=== PATIENT | male | born 2005 | race Caucasian/White ===

== ENCOUNTER 2025-02-14 18:45 | Emergency (ER) | payer BC ==
[~2025-02-14] VITALS: Ht 175.3 cm; Wt 86.0 kg
[2025-02-14] MEDS ORDERED: triamcinolone acetonide 40mg/ml inj IM ONE (18:50)
[2025-02-14 18:53] VITALS: TEMP 96.3
--- NOTE | 2025-02-14 18:56 | Physician Documentation ---
History of Present Illness ~ Chief Complaint: Allergic Reaction Stated Complaint: ALLERGIC REACTION Time Seen by MD: 18:50 HPI Patient presents to the emergency room with tongue swelling. He states he is allergic to pain that has in ate a peanut 6 minutes prior to arrival. He is apparently at [employer] and believes that they mixed peanut M and M's with regular M&M's. Medication Reconciliation Allergies: Coded Allergies: peanut (Verified Allergy, Severe, 02/14/25) Scheduled Epinephrine (Epipen 2-Calderon), 1 SYR IM ONCE Review of Systems ROS All review of systems negative except as per HPI Physical Exam Vital Signs: Temperature: 96.3, Source: Temporal, Heart Rate: 84, Respiratory Rate: 23, BP: 137/86, Pulse Oximetry: 98, Weight: 86.000 Physical Exam General: Patient is awake, alert, oriented x4. Anxious Head: Normocephalic and atraumatic. Eyes: Conjunctival normal. EOMI. PERRL. ENT: Mucous membranes moist. Mild swelling of tongue Neck: Supple, trachea is midline. Chest: Clear to auscultation bilaterally without rales, rhonchi, or wheezes. There is no accessory muscle use or retractions. Cardiac: RRR without murmurs, gallops, or rubs. Skin: Erythema noted to bilateral upper extremities Progress Results/Orders Results/Orders Completed Orders - GHASSAN LAWSON MD Epinephrine Inj (Adrenalin Inj) (02/14/25 18:50) Diphenhydramine Inj (Benadryl Inj.) (02/14/25 18:50) Famotidine/Pf Iv Inj (Pepcid Iv Inj) (02/14/25 18:50) Methylprednisolone Sod Succ (Solumedrol (02/14/25 18:50) Normal Saline 1000ml (0.9% Sodium Chlori (02/14/25 18:50) Famotidine/Pf Iv Inj (Pepcid Iv Inj) (02/14/25 19:10) Medications Received in ER Medications (Trade) Dose Ordered Sig/Nicanor Route PRN Reason Start Time Stop Time Status Last Admin Dose Admin (Adrenalin inj) 0.3 mg ONCE ONCE SQ 02/14/25 18:50 02/14/25 18:51 DC 02/14/25 19:03 0.3 MG (Benadryl inj.) 50 mg ONCE ONCE IV 12/17/25 18:50 02/14/25 18:51 DC 02/14/25 19:04 50 MG (Pepcid IV inj) 40 mg ONCE ONCE IV 02/14/25 18:50 02/14/25 18:51 DC 02/14/25 19:11 40 MG (SoluMEDROL 125mg inj) 125 mg ONCE ONCE IV 02/14/25 18:50 02/14/25 19:06 DC 02/14/25 19:08 125 MG (0.9% sodium chloride (NS) 1000ml IV soln) 1,000 ml ONCE STAT IVB 02/14/25 18:50 02/14/25 18:51 DC 02/14/25 19:08 1,000 ML Vital Signs 02/14/25 18:53 Temp 96.3 Pulse 84 Resp 23 B/P (MAP) 137/86 Pulse Ox 98 Medical Decision Making Additional information obtaine: N/A Findings Patient presents to the emergency room for evaluation of allergic reaction to peanuts. Patient's symptoms resolved and he has been monitored in the emergency room for a time with no return of symptoms. ER precautions regarding rebound symptoms discussed. Differential Dx:Considerations: Include: Anaphylaxis, Angioedema, Bronchospasm, Contact dermatitis, Drug reaction, Hypotension, Latex allergy, Renal failure, Respiratory failure, Shock, Urticaria, Other Departure Disposition: 01 HOME / SELF CARE / HOMELESS Impression: Primary Impression: Acute allergic reaction Condition: Improved Discharge Instructions: Anaphylactic Reaction, Adult, [id number] Referrals: NO PRIMARY CARE PROVIDER (PCP) Prescriptions Epinephrine (Epipen 2-Calderon) 0.3 Mg/0.3 Ml Auto.injct 1 SYR IM ONCE for 1 Day, #1 PKT 0 Refills Prov: GHASSAN LAWSON MD 02/14/25 Critical Care Note Total Time (mins): 45 Critical Care Note The very real possibility of a deterioration of this patient's condition required the highest level of my preparedness for sudden, emergent intervention. I provided critical care services, which included medication orders, frequent reevaluations of the patient's condition and response to treatment, ordering and reviewing test results, and discussing the case with various consultants. Excludes time spent performing separately billable procedures. The critical care time associated with the care of the patient was 45 minutes not counting procedures Signature Scribe Signature: No scribe Attestation: The note accurately reflects work and decisions made by me.Ghassan Lawson MD 02/14/25 19:20 GHASSAN LAWSON MD Feb 14, 2025 18:56
[2025-02-14] MEDS: normal saline 1000ML IV soln IVB STA (19:08)
[2025-02-14] MEDS: famotidine/PF 10 mg/ml inj IV ONE ×2 (19:11→19:12)
[2025-02-14] MEDS ORDERED: EPIN0.3P3 IM (19:19)
[2025-02-14 20:35] VITALS: BP 124/71; PULSE 76; RESP 20; O2SAT 97
== END 2025-02-14 20:38 | disposition home or self-care (01) ==
LOC: ER 18:45
DX: T78.49XA Other allergy, initial encounter (principal); Z91.010 Allergy to peanuts; Z79.899 Other long term (current) drug therapy; X58.XXXA Exposure to other specified factors, initial encounter
CPT/HCPCS: 96361; 96372; 96374; 96375; 99291; J0169; J1200; J2919; J3490; J7030